=== PATIENT | female | born 1985 | race Caucasian/White ===

== ENCOUNTER 2016-12-11 18:40 | Emergency (ER) | payer OTHER ==
[~2016-12-11] VITALS: Ht 165.1 cm; Wt 66.7 kg
[2016-12-11 19:44] LABS: BASOPHIL % 0.2 % (0-2); PLATELET COUNT 248 x10^3mcL (130-400)
[2016-12-11 19:45] LABS: RED CELL DISTRIBUTION WIDTH 14.9 % (11.5-14.5)
[2016-12-11 20:04] LABS: CALCIUM 8.2 mg/dL (8.5-10.1); CARBON DIOXIDE 24.2 mmol/L (21-32); CHLORIDE SERUM 109 mmol/L (98-107); CREATININE SERUM 0.8 mg/dL (0.6-1.0); GFR1 > 60 mL/min; GLUCOSE SERUM 109 mg/dL (74-106); POTASSIUM SERUM 3.8 mmol/L (3.5-5.1); SODIUM SERUM 144 mmol/L (136-145)
[2016-12-11 20:08] LABS: ALBUMIN 3.7 g/dL (3.4-5.0); ALKALINE PHOSPHATASE 61 U/L (46-116); ALT/SGPT 20 U/L (14-59); AMYLASE 55 U/L (25-115); AST/SGOT 21 U/L (15-37); BILIRUBIN TOTAL 0.26 mg/dL (0.20-1.00); CHOLESTEROL 190 mg/dL (<200); HDL CHOLESTEROL 47 mg/dL (40-60); LIPASE 118 IU/L (73-393); T4(THYROXINE) 6.6 ug/dL (4.7-13.3); TOTAL PROTEIN, SERUM 6.9 g/dL (6.4-8.2)
[2016-12-11 20:37] LABS: microscopic required? YES; urine erythrocyte 2+ (NEGATIVE)
[2016-12-11 20:45] LABS: AMPHETAMINE QUAL UR NONE DETECTED (NEG <=1000)
[2016-12-11 21:40] VITALS: BP 117/74
== END 2016-12-11 21:40 | disposition home or self-care (01) ==
LOC: ED 18:40
PROVIDERS: Emergency Medicine
DX: I45.10 Unspecified right bundle-branch block (principal); F17.210 Nicotine dependence, cigarettes, uncomplicated; Z71.6 Tobacco abuse counseling
CPT/HCPCS: 82962; 83880; 99406; J7030; Q0092